=== PATIENT | male | born 1955 | race Caucasian/White ===

== ENCOUNTER 2016-12-01 07:55 | Day surgery (SDC) | payer MEDICAID ==
[2016-12-01] MEDS ORDERED: NS 500 ML IV 500 ML IV ONE (08:41)
[2016-12-01] MEDS ORDERED: TETRACAINE 0.5% OPHTH 1 DOSE AFFEYE ONE ×2 (08:45→11:30)
[2016-12-01] MEDS ORDERED: VIGAMOX 0.5% OPHTH 1 DOSE AFFEYE ONE ×10 (08:50→11:48)
[2016-12-01] MEDS ORDERED: PROLENSA OPHTH 1 DOSE AFFEYE ONE ×2 (09:01→09:55)
[2016-12-01] MEDS ORDERED: ALPHAGAN-P OPHTH 1 DOSE AFFEYE ONE (09:02)
[2016-12-01] MEDS ORDERED: MYDRIACIL OPHTH 1 DOSE AFFEYE ONE ×3 (09:03→09:05)
[2016-12-01] MEDS ORDERED: CYCLOGYL 1% OPHTH 1 DOSE OP ONE ×3 (09:03→09:05)
[2016-12-01] MEDS ORDERED: AK-DILATE 2.5% OPHTH 1 DOSE OP ONE ×3 (09:03→09:05)
[2016-12-01] MEDS ORDERED: BETADINE OPHTH SOLN 5% EACHEYE ONE (11:30)
[2016-12-01] MEDS ORDERED: DUOVISC IO ONE (11:37)
[2016-12-01] MEDS ORDERED: XYLOCAINE-MPF 1% IJ ONE (11:37)
[2016-12-01] MEDS ORDERED: BSS OPHTH (PLAIN) 500 ML with VANCOMYCIN HCL 500 MG VIAL 25 MG, ADRENALINE CHL INJ 1 MG IR ONE ×3 (11:37)
[2016-12-01] MEDS ORDERED: ADRENALINE CHL INJ IJ ONE (11:37)
[2016-12-01] MEDS ORDERED: VERSED ONE (15:26)
[2016-12-01 16:02] VITALS: BP 121/84
== END 2016-12-01 12:15 | disposition home or self-care (01) ==
LOC: SURG1 07:55
PROVIDERS: ATTEND Ophthalmology
PROC: 08RK3JZ Replacement of Left Lens with Synthetic Substitute, Percutaneous Approach (ICD-10-PCS; principal; 2016-12-01 12:45)
PROC: 08DK3ZZ Extraction of Left Lens, Percutaneous Approach (ICD-10-PCS; principal; 2016-12-01 12:45)
DX: H25.12 Age-related nuclear cataract, left eye (principal); H25.042 Posterior subcapsular polar age-related cataract, left eye
CPT/HCPCS: A4217; J0170; J2250; J3370

== ENCOUNTER 2016-12-29 07:01 | Day surgery (SDC) | payer MEDICAID ==
[2016-12-29] MEDS ORDERED: NS 500 ML IV 500 ML IV ONE (07:23)
[2016-12-29] MEDS ORDERED: TETRACAINE 0.5% OPHTH 1 DOSE AFFEYE ONE ×2 (07:30→09:36)
[2016-12-29] MEDS ORDERED: VIGAMOX 0.5% OPHTH 1 DOSE AFFEYE ONE ×5 (07:31→09:55)
[2016-12-29] MEDS ORDERED: PROLENSA OPHTH 1 DOSE AFFEYE ONE (07:42)
[2016-12-29] MEDS ORDERED: ALPHAGAN-P OPHTH 1 DOSE AFFEYE ONE (07:43)
[2016-12-29] MEDS ORDERED: CYCLOGYL 1% OPHTH 1 DOSE OP ONE ×2 (07:44→07:45)
[2016-12-29] MEDS ORDERED: MYDRIACIL OPHTH 1 DOSE AFFEYE ONE ×2 (07:44→07:45)
[2016-12-29] MEDS ORDERED: AK-DILATE 2.5% OPHTH 1 DOSE OP ONE ×2 (07:44→07:45)
[2016-12-29] MEDS ORDERED: BETADINE OPHTH SOLN 5% EACHEYE ONE (09:36)
[2016-12-29] MEDS ORDERED: DUOVISC IO ONE (09:46)
[2016-12-29] MEDS ORDERED: BSS OPHTH (PLAIN) 500 ML with VANCOMYCIN HCL 500 MG VIAL 25 MG, ADRENALINE CHL INJ 1 MG IR ONE ×3 (09:46)
[2016-12-29] MEDS ORDERED: ADRENALINE CHL INJ IJ ONE (09:46)
[2016-12-29] MEDS ORDERED: XYLOCAINE-MPF 1% IJ ONE (09:46)
[2016-12-29 10:55] VITALS: BP 140/83
== END 2016-12-29 10:21 | disposition home or self-care (01) ==
LOC: SURG1 07:01
PROVIDERS: ATTEND Ophthalmology
PROC: 08RJ3JZ Replacement of Right Lens with Synthetic Substitute, Percutaneous Approach (ICD-10-PCS; principal; 2016-12-29 09:00)
PROC: 08DJ3ZZ Extraction of Right Lens, Percutaneous Approach (ICD-10-PCS; principal; 2016-12-29 09:00)
DX: H25.11 Age-related nuclear cataract, right eye (principal); H25.041 Posterior subcapsular polar age-related cataract, right eye
CPT/HCPCS: A4217; J0170; J3370